=== PATIENT | female | born 2005 | race Caucasian/White ===

== ENCOUNTER 2025-02-17 20:25 | Emergency (ER) | payer OTHER, SELFPAY ==
[2025-02-17 20:27] VITALS: BP 126/93; PULSE 95; RESP 16; TEMP 36.9; O2SAT 98
[2025-02-17 21:18] LABS: Abs Immature Grans 0.04 10^3/uL (0.0-0.06); HCT 39.9 % (36.0-46.0); HGB 13.0 g/dL (11.2-15.7); Immature Grans % 0.3 %; MCH 28.2 pg (27.0-33.0); MCHC 32.6 % (32.0-36.0); MCV 87 fL (80-95); MPV 8.3 fL (8.0-11.0); Platelet Count 430 10^3/uL (130-400); RBC 4.61 10^6/uL (3.93-5.22); RDW 12.3 % (11.7-14.6); RDW-SD 38.6 fL; WBC 11.53 10^3/uL (4.4-10.8)
[2025-02-17] MEDS: Normal Saline 1,000 ML 1000 ML IV (21:21)
[2025-02-17] MEDS: Dexamethasone 10 MG/ML VIAL IVP (21:22)
[2025-02-17] MEDS: Famotidine 20 MG/2 ML VIAL IVP (21:22)
[2025-02-17] MEDS: diphenhydrAMINE 50 MG/ML VIAL 25 MG IVP (21:23)
[2025-02-17 21:42] LABS: ALT 36 U/L (14-59); AST 19 U/L (15-37); Albumin 3.6 g/dL (3.4-5.0); Alkaline Phosphatase 95 U/L (46-116); Anion Gap 6.2 mmol/L (3-11); BUN 6 mg/dL (7-18); Bilirubin, Total 0.4 mg/dL (0.2-1.0); CO2 29.8 mmol/L (21.0-32.0); Calcium 8.5 mg/dL (8.5-10.1); Chloride 103 mmol/L (98-107); Estimated GFR 130.88 (mL/min/1.73m2); Glucose 91 mg/dL (74-106); Potassium 3.6 mmol/L (3.5-5.1); Sodium 139 mmol/L (136-145); TSH (W/Ref FT4) 2.11 uIU/mL (0.36-3.74); Total Protein 7.2 g/dL (6.4-8.2)
[2025-02-17] MEDS: EPINEPHrine 0.3 MG KIT IM (22:47)
[2025-02-17 22:56] VITALS: BP 128/88; PULSE 84; RESP 16; O2SAT 98
--- NOTE | 2025-02-18 18:37 | W.ED.GENAD ---
Discharge Plan Disposition Patient Disposition: Home Condition: Stable Discharge Details Clinical Impression: Facial swelling, Urticaria Primary Care Provider: Marie,Local ED Provider: July Lehman Home Meds and New Rx's Prescriptions: New prednisone 20 mg tablet 40 mg PO DAILY Qty: 10 0RF venlafaxine [Effexor XR] 75 mg capsule,extended release 24hr 75 mg PO DAILY Qty: 14 0RF Discharge Instructions Instructions: Allergic Reaction ED Additional Instructions: Take the prednisone daily, your next dose will be tomorrow, decrease your Effexor to 75 mg and obtain a virtual visit with your PCP for reassessment this week Take a Claritin during the day which is nondrowsy and take Benadryl at night You have been given an EpiPen, only uses it if you develop difficulty swallowing or shortness of breath associated with the facial swelling, you should call 911 immediately if this is the case, inject your thigh with the medication per package instructions At this time we are unsure as to the cause of your facial swelling I best guess is you are having a reaction to the Effexor in the show we discontinued Should your symptoms persist I do recommend reassessment in the emergency Discharge Data Discharge Date/Time-TO BE ENTERED AT DEPARTURE: 02/17/25 23:26 HPI General Date/Time Provider Initiated Documentation: 02/17/25 20:37. HPI Narrative: This 19-year-old female is otherwise healthy, takes Effexor for anxiety and depression. States that 2 days ago she started having some swelling above her lids. She states it progressed to her face and her lips over the course of today. She denies any difficulty swallowing or shortness of breath. She has urticaria on her arms and her legs. She states she is been on the Effexor for approximately 6 months. She denies any new medications, detergents, creams or soaps. She does sleep in a dorm but this is not new for her. She denies any chance of . She denies any pain complaints. She describes the rash as itchy in nature and denies any history of this happening previously. She has not taken any medications today per patient. Related Data Home Medications ?Medication ?Instructions ?Recorded ?Confirmed prednisone 20 mg tablet 40 mg (2 x 20 mg) PO DAILY #10 tabs 02/17/25 venlafaxine 75 mg capsule,extended 75 mg PO DAILY #14 caps 02/17/25 release 24 hr (Effexor XR) Previous Rx's ?Medication ?Instructions ?Recorded prednisone 20 mg tablet 40 mg (2 x 20 mg) PO DAILY #10 tabs 02/17/25 venlafaxine 75 mg capsule,extended 75 mg PO DAILY #14 caps 02/17/25 release 24 hr (Effexor XR) Allergies Allergy/AdvReac Type Severity Reaction Status Date / Time No Known Allergies Allergy Unverified 02/17/25 20:29 General Stated Complaint: Allergic SHARIF: 4 Exam Narrative Exam Narrative: Alert and oriented 19-year-old female in no acute distress, swelling noted to face and lips, oropharynx patent uvula midline normal phonation no stridor urticaria noted on bilateral upper extremities and lower extremities, lungs clear to auscultation no respiratory distress fully alert and oriented Course Vital Signs Vital signs: Vital Signs Temperature 36.9 C 02/17/25 20:27 Pulse 95 H 02/17/25 20:27 Respiratory Rate 16 02/17/25 20:27 Blood Pressure 126/93 H 02/17/25 20:27 Pulse Oximetry 98 02/17/25 20:27 Temperature 36.9 C 02/17/25 20:27 Pulse 84 02/17/25 22:56 Respiratory Rate 16 02/17/25 22:56 Respiratory Effort Normal, Non-Labored 02/17/25 20:37 Respiratory Pattern Normal 02/17/25 20:37 Blood Pressure 128/88 02/17/25 22:56 Pulse Oximetry 98 02/17/25 22:56 Pain Level 0 02/17/25 20:27 Lab/Test Results Lab/Test Results: Laboratory Tests Range/Units 02/17/25 21:11 WBC (4.4-10.8) 10^3/uL 11.53 H RBC (3.93-5.22) 10^6/uL 4.61 Hgb (11.2-15.7) g/dL 13.0 Hct (36.0-46.0) % 39.9 MCV (80-95) fL 87 MCH (27.0-33.0) pg 28.2 MCHC (32.0-36.0) % 32.6 RDW (11.7-14.6) % 12.3 Plt Count (130-400) 10^3/uL 430 H MPV (8.0-11.0) fL 8.3 Immature Gran % % 0.3 Neutrophils % % 67.4 Lymphocytes % % 26.8 Monocytes % % 5.4 Eosinophils % % 0.0 Basophils % % 0.1 Nucleated RBC % (0.0-0.3) % 0.0 Absolute Neutrophils (1.2-6.7) 10^3/uL 7.77 H Absolute Lymphocytes (1.2-3.4) 10^3/uL 3.09 Absolute Monocytes (0.1-0.8) 10^3/uL 0.62 Absolute Eosinophils (0.0-0.7) 10^3/uL 0.00 Absolute Basophils (0.0-0.2) 10^3/uL 0.01 Sodium (136-145) mmol/L 139 Potassium (3.5-5.1) mmol/L 3.6 Chloride (98-107) mmol/L 103 Carbon Dioxide (21.0-32.0) mmol/L 29.8 Anion Gap (3-11) mmol/L 6.2 BUN (7-18) mg/dL 6 L Creatinine (0.55-1.02) mg/dL 0.6 Est GFR (CKD-EPI 2020) (mL/min/1.73m2) 130.88 Glucose (74-106) mg/dL 91 Calcium (8.5-10.1) mg/dL 8.5 Total Bilirubin (0.2-1.0) mg/dL 0.4 AST (15-37) U/L 19 ALT (14-59) U/L 36 Alkaline Phosphatase (46-116) U/L 95 Total Protein (6.4-8.2) g/dL 7.2 Albumin (3.4-5.0) g/dL 3.6 TSH (0.36-3.74) uIU/mL 2.11 Medical Decision Making Results: Diagnostic labs do not show significant acute abnormality mild leukocytosis at 11,000 platelet count of 430 Assessment and plan: As I do not have an obvious source for the facial swelling, I will cut patient's Effexor in half and attempt to discontinue this medication. I will also give patient an epinephrine pen although she does not appear to be in acute anaphylaxis she does have pretty significant facial swelling. She certainly looks better after receiving the prednisone and Benadryl. She is encouraged to have a virtual visit with her provider tomorrow and discuss plan to discontinue the Effexor and attempt to determine what the cause of this rash is. She may need allergy testing in the outpatient setting 2. I did consider admission for observation however as she has had significant improvement with allergy medications I think it is reasonable to send her home. She will be in the care of her who will keep a close eye on her. Precautions and instructions for use of epinephrine pen reviewed with patient in detail and patient expressed understanding. Recheck tomorrow virtually with her PCP in [place] is encouraged PFSH All Active Problems (Updated 02/17/25 @ 22:43 by MILLY Tian) Urticaria (Acute) Facial swelling (Acute) Social History Smoking/Tobacco Use Status: Never Smoking risk assessment performed?: Yes Alcohol Intake: never Drug use: Never
== END 2025-02-17 23:26 | disposition home or self-care (01) ==
PROVIDERS: Emergency Provider Physician Assistant
DX: L50.9 Urticaria, unspecified (principal)
CPT/HCPCS: 80053; 96361; 96374; 96375; 99283; 84443; 85025; J0165; J1100; J1200

== ENCOUNTER 2025-03-13 10:53 | Emergency (ER) | payer OTHER, SELFPAY ==
[2025-03-13 10:57] VITALS: BP 173/92; PULSE 112; RESP 16; TEMP 37; O2SAT 98
--- NOTE | 2025-03-13 11:32 | W.ED.GENAD ---
Discharge Plan Disposition Patient Disposition: Home Condition: Stable Discharge Details Clinical Impression: Leukocytosis, Arthralgia, Rash Primary Care Provider: Marie,Local ED Provider: Kota Bruner Home Meds and New Rx's Prescriptions: New doxycycline hyclate 100 mg capsule 100 mg PO BID Qty: 41 0RF Continued famotidine [Acid Controller] 20 mg tablet 20 mg PO BID All Day Allergy (cetirizine) 10 mg capsule 20 mg PO BID Discharge Instructions Instructions: Joint Pain, Skin Rash ED Additional Instructions: Blood work today revealed leukocytosis (elevated white blood cell count). Also noted was elevated C-reactive protein. No source of infection identified. Syphilis and tick panel pending at time of discharge. You are being started on doxycycline empirically while tick panel is pending. Please continue Zyrtec. Dose according to label. Please follow-up with your primary care physician. Further outpatient diagnostic testing, treatment and referral to specialist may be necessary. Return to the emergency department immediately for any worsening or new concerning symptoms. Stand Alone Forms: Portal Information HPI General Mode of arrival: ambulatory. Date/Time Provider Initiated Documentation: 03/13/25 11:12. Limitations to Documentation: no limitations. Information obtained by: patient. HPI Narrative: HISTORY OF PRESENT ILLNESS 20 yo female patient with facial swelling and hives, worsening symptoms. Initially sought care on 02/17/2025 for facial swelling and hives, rapid onset upon awakening. Treated with famotidine, Benadryl, steroid; suspected Effexor (started 11/2024) as cause, began tapering. Despite 5-day Benadryl 40 mg and daily loratadine, symptoms persisted. PCP on 02/28/2025 suggested possible COVID-19 vaccine reaction (received with influenza vaccine early 01/2025). Intermittent facial swelling (lips, cheeks), persistent pruritic hives. No known allergies, diet changes, recent travel, tick bites, new foods. No tobacco/alcohol use. No similar symptoms in vicinity. Employed as director of pharmacy, student. Rash on legs, chest, back; no fever. Not sexually active since 11/2024. Blood tests for diabetes, thyroid function last visit. 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 Took 20 mg famotidine, two Zyrtec this morning, improved symptoms. Joint pain started 2 weeks ago, progressively worsened past week, flu-like symptoms without fever. Managing with heating pad, layering clothing. Occasional painful foot spasms. Disrupted sleep, hair loss. No history of similar symptoms, no family history. Related Data Home Medications Medication Instructions Recorded Confirmed cetirizine 10 mg capsule (All Day 20 mg PO BID 03/13/25 03/13/25 Allergy (cetirizine)) doxycycline hyclate 100 mg capsule 100 mg PO BID #41 caps 03/13/25 famotidine 20 mg tablet (Acid 20 mg PO BID 03/13/25 03/13/25 Controller) Previous Rx's Medication Instructions Recorded doxycycline hyclate 100 mg capsule 100 mg PO BID #41 caps 03/13/25 Allergies Allergy/AdvReac Type Severity Reaction Status Date / Time No Known Allergies Allergy Unverified 03/13/25 11:02 General Stated Complaint: Recheck SHARIF: 4 Review of Systems All systems reviewed & are unremarkable except as noted in HPI and below Constitutional Constitutional: Reports body ache(s) Exam Const General: cooperative and no acute distress [facility] Head: normocephalic and atraumatic Mouth: moist mucous membranes Eyes Conjunctivae: normal conjunctivae Sclera: normal sclerae Neck Neck: trachea midline and supple Resp Auscultation: clear to auscultation bilaterally, no rales, no rhonchi and no wheezes Cardio Jugular venous pressure: no JVD Rate: regular rate and not tachycardic Rhythm: regular rhythm GI Palpation: soft, not firm, no guarding, no masses, not rigid and nontender Skin General skin exam: no rashes or lesions noted Neuro General: patient alert, patient awake and tone normal Extrem General: no edema Psych Appearance: grossly normal Mental Status: mental status grossly normal Course Vital Signs Vital signs: Vital Signs Temperature 37.0 C 03/13/25 10:57 Pulse 112 H 03/13/25 10:57 Respiratory Rate 16 03/13/25 10:57 Blood Pressure 173/92 H 03/13/25 10:57 Pulse Oximetry 98 03/13/25 10:57 Temperature 37.0 C 03/13/25 10:57 Pulse 112 H 03/13/25 10:57 Respiratory Rate 16 03/13/25 10:57 Blood Pressure 173/92 H 03/13/25 10:57 Pulse Oximetry 98 03/13/25 10:57 Oxygen Delivery Method Room Air 03/13/25 10:57 Oxygen Flow Rate 0 03/13/25 10:57 Pain Level 0 03/13/25 10:57 Medical Decision Making ASSESSMENT AND PLAN 20-year-old female here with generalized rash with severe itching, persistent hives and arthralgias. Patient afebrile. Tachycardic and hypertensive on arrival. Patient previously seen here with sudden onset of facial swelling and rash 02/17. Treated with steroid burst. Symptoms have persisted. Differential Diagnosis: - Allergic reaction: Rapid onset facial swelling, hives. Continue antihistamines. Blood work. - Rheumatologic condition: Persistent joint pain, flu-like symptoms. Blood work. Referral to rheumatology. - Syphilis: Unexplained rash. Syphilis test. - Tick-borne illness: Rash, joint pain. Tick panel. Blood work obtained including tick panel and syphilis test. Labs reviewed and non diagnostic. Leukocytosis noted. Normal LFTs. Negative flu and COVID. Considered UTI as she has had some intermittent discomfort with urination. Urinalysis normal. RPR and tick panel pending. Results were discussed with the patient. Plan to start doxycycline empirically given symptomatology well tick panel pending. Patient reassessed and vitals improved. Plan for discharge with close outpatient follow-up. Patient may need referral to rheumatology. Clinical Impression: - Inflammatory reaction - Leukocytosis Follow-Up: Referral to rheumatology via PCP. Patient Education: Continue antihistamines. Potential need for additional testing, specialty care. This document was written with the assistance of MARGOT Prajapati. The patient consented to its use. Lab Data Lab results reviewed: Yes I reviewed the patient's lab results. Labs: Laboratory Tests Range/Units 03/13/25 03/13/25 03/13/25 11:50 12:38 12:47 WBC (4.4-10.8) 10^3/uL 14.20 H RBC (3.93-5.22) 10^6/uL 4.23 Hgb (11.2-15.7) g/dL 12.0 Hct (36.0-46.0) % 36.3 MCV (80-95) fL 86 MCH (27.0-33.0) pg 28.4 MCHC (32.0-36.0) % 33.1 RDW (11.7-14.6) % 12.0 Plt Count (130-400) 10^3/uL 500 H MPV (8.0-11.0) fL 8.1 Immature Gran % % 0.8 Neutrophils % % 78.6 Lymphocytes % % 16.6 Monocytes % % 3.8 Eosinophils % % 0.1 Basophils % % 0.1 Nucleated RBC % (0.0-0.3) % 0.0 Absolute Neutrophils (1.2-6.7) 10^3/uL 11.16 H Absolute Lymphocytes (1.2-3.4) 10^3/uL 2.36 Absolute Monocytes (0.1-0.8) 10^3/uL 0.54 Absolute Eosinophils (0.0-0.7) 10^3/uL 0.01 Absolute Basophils (0.0-0.2) 10^3/uL 0.01 ESR (0-20) mm/hr 13 Sodium (136-145) mmol/L 141 Potassium (3.5-5.1) mmol/L 3.6 Chloride (98-107) mmol/L 107 Carbon Dioxide (20.0-31.0) mmol/L 27.5 Anion Gap (3-11) mmol/L 6.5 BUN (9-23) mg/dL 6 L Creatinine (0.55-1.02) mg/dL 0.6 Est GFR (CKD-EPI 2020) (mL/min/1.73m2) 116.01 Glucose (74-106) mg/dL 108 H Calcium (8.3-10.6) mg/dL 8.7 Total Bilirubin (0.2-1.2) mg/dL 0.30 AST (<34) U/L 18 ALT (10-49) U/L 23 Alkaline Phosphatase (46-116) U/L 81 C-Reactive Protein (<=0.50) mg/dL 5.45 H Total Protein (5.7-8.2) g/dL 7.0 Albumin (3.4-5.0) g/dL 4.2 Urine Color (Yellow) Yellow Urine Clarity (Clear) Clear Urine pH (5-8) 6.5 Ur Specific [place] (1.005-1.025) 1.025 Urine Protein (Neg-Trace) mg/dL Trace Urine Ketones (Negative) mg/dL Negative Urine Blood (Negative) Negative Urine Nitrite (Negative) Negative Urine Bilirubin (Negative) Negative Urine Urobilinogen (Up to 0.2) mg/dL 0.2 Ur Leukocyte Esterase (Negative) Negative Urine Glucose (Negative) mg/dL Negative COVID-19 Source Nasopharynx SARS-CoV-2 (PCR) (Negative) Negative Influenza Type A (PCR) (Negative) Negative Influenza Type B (PCR) (Negative) Negative RSV (PCR) (Negative) Negative PFSH All Active Problems (Updated 03/13/25 @ 14:11 by Kota Bruner MD) Rash (Acute) Arthralgia (Acute) Leukocytosis (Acute) Urticaria (Acute) Facial swelling (Acute) Social History Smoking/Tobacco Use Status: Never Smoking risk assessment performed?: Yes Alcohol Intake: never Drug use: Never Do you feel safe at home: Yes Do you feel safe in your relationship?: Yes
[2025-03-13 11:58] LABS: ESR 13 mm/hr (0-20)
[2025-03-13 11:59] LABS: Abs Immature Grans 0.11 10^3/uL (0.0-0.06); HCT 36.3 % (36.0-46.0); HGB 12.0 g/dL (11.2-15.7); Immature Grans % 0.8 %; MCH 28.4 pg (27.0-33.0); MCHC 33.1 % (32.0-36.0); MCV 86 fL (80-95); MPV 8.1 fL (8.0-11.0); Platelet Count 500 10^3/uL (130-400); RBC 4.23 10^6/uL (3.93-5.22); RDW 12.0 % (11.7-14.6); RDW-SD 37.2 fL; WBC 14.20 10^3/uL (4.4-10.8)
[2025-03-13 12:15] LABS: C-Reactive Protein 5.45 mg/dL (<=0.50)
[2025-03-13 12:17] LABS: ALT 23 U/L (10-49); AST 18 U/L (<34); Albumin 4.2 g/dL (3.4-5.0); Alkaline Phosphatase 81 U/L (46-116); Anion Gap 6.5 mmol/L (3-11); BUN 6 mg/dL (9-23); Bilirubin, Total 0.30 mg/dL (0.2-1.2); CO2 27.5 mmol/L (20.0-31.0); Calcium 8.7 mg/dL (8.3-10.6); Chloride 107 mmol/L (98-107); Glucose 108 mg/dL (74-106); Potassium 3.6 mmol/L (3.5-5.1); Sodium 141 mmol/L (136-145); Total Protein 7.0 g/dL (5.7-8.2)
[2025-03-13 13:04] LABS: Glucose Negative (Negative)
[2025-03-13 13:28] LABS: COVID-19 PCR Negative (Negative); RSV PCR Negative (Negative)
[2025-03-13 13:56] VITALS: BP 119/52; PULSE 81; RESP 14; TEMP 37.2; O2SAT 100
[2025-03-13] MEDS: Doxycycline Hyclate 100 MG CAP PO (14:32)
[2025-03-14 10:33] LABS: Lyme Ab w Rflx to Lyme Confirm Negative (Negative); Syphilis Serology (RPR) Negative (Negative)
[2025-03-16 16:07] LABS: B. miyamotoi PCR Negative (Negative); Babesia divergens/MO-1 Negative (Negative); Ehrlichia muris eauclairensis Negative (Negative)
--- NOTE | 2025-03-17 16:52 | W.ED.FU ---
Date of service: 03/13/25 Follow Up Plan: Tick panel and syphilis negative. Patient had been started empirically on doxycycline. Plan to discussed results with patient and potentially discontinue antibiotic. Attempted to contact patient at preferred number. No answer and no voicemail available.
== END 2025-03-13 14:32 | disposition home or self-care (01) ==
PROVIDERS: Emergency Provider Student in an Organized Health Care Education/Training Program
DX: D72.829 Elevated white blood cell count, unspecified (principal); M25.559 Pain in unspecified hip; R21 Rash and other nonspecific skin eruption
CPT/HCPCS: 36415; 80053; 85652; 87637; 87798; 99283; 81003; 85025; 86140; 86592; 86618